=== PATIENT | female | born 1955 | race Caucasian/White ===

== ENCOUNTER → 2017-02-13 | Outpatient (CLI) | payer BC ==
[~2017-02-13] MED LIST: ASPI81TA28 PO; ENAL10TA88 PO; ENAL10TA9 PO; GLC/500 PO; PRAV20TA2 PO
[2017-02-13 17:43] LABS: HEMATOCRIT 38.7 % (37-47); MEAN CELL VOLUME 81.5 fL (80-100); MEAN CORPUSCULAR HEMOGLOBIN 27.6 pg (25-34); MEAN CORPUSCULAR HGB CONC 33.9 g/dl (32-36); MEAN PLATELET VOLUME 9.7 fL (7.4-10.4); PLATELET COUNT 269 K/uL (130-400); RED BLOOD COUNT 4.75 M/uL (4.2-5.4); WHITE BLOOD COUNT 9.82 K/uL (4.8-10.8)
== END | disposition home or self-care (01) ==
LOC: C.LAB1850 16:21
PROVIDERS: ATTEND Obstetrics & Gynecology
DX: R93.8 Abnormal findings on diagnostic imaging of other specified body structures (principal)

== ENCOUNTER → 2017-02-28 | Day surgery (SDC) | payer BC ==
[2017-01-23 14:10] VITALS: Ht 170.2 cm; Wt 87.7 kg
--- NOTE | 2017-02-22 17:35 | HISTORY & PHYSICAL EXAMINATION ---
DATE OF ADMISSION: 02/28/2017 CHIEF COMPLAINT: Abnormal findings on ultrasound. HISTORY OF PRESENT ILLNESS: A 62-year-old 1, para 0 who underwent an ultrasound of the kidneys when she suddenly had a new onset of elevated blood pressure in December 2016. An incidental finding was thickened endometrium for which a pelvic ultrasound was done. It showed thickened endometrium at 14 mm. She has never had any postmenopausal bleeding. She has been postmenopausal since about 2009. She denies any pain. She saw Dr. 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 Imaging at our office at that time showed a likely polyp with a vascular stalk. The patient desires surgical evaluation. PAST MEDICAL HISTORY: Hypercholesterolemia, hypertension and prediabetes. PAST SURGICAL HISTORY: None. ALLERGIES: None. MEDICATIONS: Enalapril, hydrochlorothiazide, hydrocortisone external lotion, metformin, pravastatin. SOCIAL HISTORY: Social drinker, nonsmoker. FAMILY HISTORY: Father with heart disease. No family history of breast, colon or ovary cancer. REVIEW OF SYSTEMS: Ten system negative and within the chart except for recent worsening hypertension and medical problems as noted. PHYSICAL EXAMINATION: Dated 01/22/2017 included a VITAL SIGNS: Height 5 foot 6-3/4 inch, weight 193, BMI 30.5. Blood pressure 152/96. GENERAL: She is a pleasant female in no acute distress. NECK: Without thyromegaly or lymphadenopathy. LUNGS: Clear to auscultation bilaterally. HEART: Regular rate and rhythm. ABDOMEN: Soft, nontender with no hernias. No anterior, posterior cervical nodes or problems. NEUROLOGIC: Grossly normal. ASSESSMENT: 1. Abnormal findings on imaging. 2. Cervical stenosis. 3. Suspected endometrial polyp. PLAN: Given the patient's findings on ultrasound an endometrial polyp is suspected as a cause of her thickened endometrium incidentally seen on her ultrasound. Her cervix is stenotic, which has not allowed evaluation with biopsy or SIS. The patient desires surgical evaluation and treatment and plans D\T\C, hysteroscopy and removal of lesion. We discussed the risks, alternatives and complications to include but not limited to bleeding, infection, anesthesia, perforation of the uterus requiring laparoscopy, injury to the bowel, bladder, vessels, nerves, ureters, delayed complications, additional procedures or hospitalizations as needed, deep venous thrombosis, pulmonary embolism. She desires to proceed and a consent form was signed. Preoperative and postoperative instructions and course were reviewed. Given her stenotic cervix we will plan Cytotec 600 mcg by mouth 12 hours prior to the procedure and again 6 hours prior to the procedure to help soften the cervix. The patient is aware of the side effects and risks of this plan. Consent form is signed.
[~2017-02-28] VITALS: Ht 170.2 cm; Wt 87.7 kg
[~2017-02-28] MED LIST changes: +FENTANYL CITRATE INJ 50 MCG/1 ML 2 ML VIAL ONE; +IBUPROFEN 600 MG TAB PO PRN; +KETOROLAC TROMETHAMINE 30 MG/ML VIAL IV. PRN; +LACTATED RINGER'S 1000ML 1,000 ML IV SCH; +LIDOCAINE HCL 2% 2 ML VIAL (20MG/ML) ONE; +MIDAZOLAM HCL 1 MG/ML 2ML VIAL ONE; +ONDANSETRON INJ 2 MG/ML 2 ML VIAL IV PRN; +OXYCODONE/ACETAMINOPHEN 5-325 TAB PO PRN; +PROPOFOL IV EMULSION 10 MG/ML 20 ML VIAL IV ONE; +SODIUM CHLORIDE 0.9% 1000ML 1,000 ML IV SCH
--- NOTE | 2017-02-28 13:06 | History & Physical Bridge - [place] ---
H&P Re-Evaluation Bridge Note: I have examined the patient, reviewed the History & Physical and in the interval since the performance of the History & Physical I have noted the following changes of clinical significance: No changes noted
--- NOTE | 2017-02-28 14:13 | Discharge Instructions ---
Discharge Instructions Date of Service Feb 28, 2017. Admission Reason for Admission: Endometrial Polyp Discharge Discharge Diagnosis / Problem: after surgery Discharge Goals Goal(s): Routine recovery after surgery Activity Recommendations Activity Limitations: as noted below . Instructions / Follow-Up Instructions / Follow-Up ACTIVITY RECOMMENDATIONS: * Avoid tampons, douching, hot tubs, pools, and intercourse until bleeding has stopped. * May shower as usual. * No strenuous activity for 24-48 hours. After 24-48 hours, you may do anything you feel like doing (driving and sports are okay). SPECIAL CARE INSTRUCTIONS: Special Diet: * Mild nausea may occur in the immediate post-operative period. * Take clear liquids such as tea, cola or bouillon until all nausea has subsided; you may then resume your normal diet. Special Care: * Light bleeding and vaginal spotting can last from a few days to 3-4 weeks. Call your doctor if bleeding becomes heavier than the heaviest part of your period. * Check your temperature twice a day for one week. If it goes above 100.4 degrees Fahrenheit (38.0 Celsius), notify your doctor. * Call your doctor's office for an appointment for 2 weeks after your surgery. FOLLOW-UP VISIT: Call your doctor's office for an appointment for 2 weeks after your surgery. Current Hospital Diet Patient's current hospital diet: Discharge Diet Recommended Diet: Regular Diet Procedures Procedures Performed: Dilatation And Curettage, Hysteroscopy, Polypectomy Pending Studies Studies pending at discharge: yes List of pending studies: pathology report Medical Emergencies . Who to Call and When: Medical Emergencies: If at any time you feel your situation is an emergency, please call 911 immediately. . Non-Emergent Contact Non-Emergency issues call your: Rope Walker . . "Provider Documentation" section prepared by Amanda Paula. . VTE Core Measure Inpt VTE Proph given/why not?: Treatment not indicated
--- NOTE | 2017-02-28 14:16 | [facility] Post Operative Brief Note ---
Immediate Operative Summary Operative Date Feb 28, 2017. Pre-Operative Diagnosis 1. abnormal imaging findings 2. cervical stenosis 3. suspected Endometrial polyp Post-Operative Diagnosis Same as preop, endometrial polyp Procedure(s) Performed Dilatation And Curettage, Hysteroscopy, Endometrial Polypectomy Surgeon Dr. Amanda Paula Secretarial Stenographer Surgeon(s) None Estimated Blood Loss 0 mL Findings uterus sounds to 7cm. large polyp emanating from anterior uterine wall noted. normal ostia bilaterally. saline deficit 25cc. minimal curettings. Fluids (cc crystalloids) 400 Specimens A: Endometrial curettings and polyp Drains none Anesthesia general Complication(s) None Disposition Recovery Room / PACU
--- NOTE | 2017-02-28 14:28 | Anesthesia Progress Nt - [facility] ---
Anesthesia Post Op Note Date & Time Feb 28, 2017 at 14:27 Vital Signs Pain Intensity: 0 Vital Signs Past 12 Hours Date Time Temp Pulse Resp B/P Pulse Ox O2 Delivery O2 Flow Rate FiO2 02/28/17 14:21 82 22 100 02/28/17 14:21 81 22 02/28/17 14:20 155/101 02/28/17 14:16 84 23 02/28/17 14:16 83 23 148/90 98 02/28/17 14:12 149/100 02/28/17 14:11 37.0 85 12 149/100 96 Mask 8 02/28/17 12:47 36.6 76 20 154/103 98 Room Air Notes Mental Status: alert / awake / arousable, participated in evaluation Pt Amnestic to Procedure: Yes Nausea / Vomiting: adequately controlled Pain: adequately controlled Airway Patency, RR, SpO2: stable & adequate BP & HR: stable & adequate Hydration State: stable & adequate Anesthetic Complications: no major complications apparent Pt doing well.
--- NOTE | 2017-02-28 14:32 | OPERATIVE REPORT ---
DATE OF OPERATION: 02/28/2017 PREOPERATIVE DIAGNOSES: 1. Abnormal imaging of the uterus. 2. Cervical stenosis. 3. Endometrial polyp suspected POSTOPERATIVE DIAGNOSES: 1. Same. 2. Endometrial polyp. PROCEDURES: 1. Dilatation and curettage. 2. Hysteroscopy. 3. Resection of endometrial polyp. SURGEON: Dr. Amanda Paula. ANESTHESIA: General. IV FLUIDS: 400 mL. ESTIMATED BLOOD LOSS: Zero mL. FINDINGS: Uterus sounds to 7 cm, normal tubal ostia bilaterally. Large endometrial polyp emanating from the anterior wall extending from the fundus down to the lower uterine segment. Minimal curettings. Saline and hysteroscopic fluid deficit 25 mL. INDICATIONS: A 62-year-old who had imaging done for another reason with an incidental finding of a thickened endometrial stripe. She had cervical stenosis and was not able to be evaluated this endometrial biopsy in the office setting. Ultrasound was suspicious for an endometrial polyp on a stalk. The patient took preprocedure Cytotec. She desired surgical evaluation. DESCRIPTION OF PROCEDURE: The patient was taken to the operating room and identified. After adequate general anesthesia was obtained, she was placed in the dorsal lithotomy position and prepped and draped in the usual sterile fashion. A weighted speculum and anterior retractor were placed to visualize the cervix, which was grasped in its anterior lip with a single tooth tenaculum. The bladder had already been drained for clear yellow urine. The cervix was sequentially dilated using Hegar dilators to 25. The diagnostic hysteroscope primed with saline medium was gently placed through the cervical os into the uterine cavity with findings as noted above. The camera was removed and using polyp forceps as well as a serrated curette, the uterus was cleared of its contents and the cavity was curettaged to a gritty consistency. The camera was used to confirm removal of the polyp. At this point, the procedure was terminated. The instruments were removed and the tenaculum was removed. There was no bleeding sites of the cervix. The patient was returned to supine position. She was awoken from anesthesia and transferred to the recovery room in stable condition. All sponge, lap, needle counts were correct x2. I attest to the content of the Intraoperative Record and any orders documented therein. Any exceptions are noted below. ALVAREZ
[2017-02-28 15:12] VITALS: BP 147/93; PULSE 75; O2SAT 96
== END | disposition home or self-care (01) ==
LOC: X.SURG 12:36
PROVIDERS: ATTEND Obstetrics & Gynecology
DX: R93.8 Abnormal findings on diagnostic imaging of other specified body structures (principal); N88.2 Stricture and stenosis of cervix uteri; N84.0 Polyp of corpus uteri; I10 Essential (primary) hypertension; E11.9 Type 2 diabetes mellitus without complications; E78.00 Pure hypercholesterolemia, unspecified; Z68.30 Body mass index [BMI] 30.0-30.9, adult; Z82.49 Family history of ischemic heart disease and other diseases of the circulatory system